=== PATIENT | female | born 1950 | race Caucasian/White ===

== ENCOUNTER 2020-01-21 12:59 | Observation (INO) | payer MEDICARE ==
[~2020-01-21] VITALS: Ht 152.4 cm; Wt 55.3 kg
--- NOTE | 2020-01-21 13:02 | NUR ---
PT REFUSED WHEELCHAIR AND AMBUALTED TO ROOM WITH A STEADY GAIT.
--- NOTE | 2020-01-21 13:30 | NUR ---
PT APPEARS VERY ANXIOUS ABOUT SOB, BUT TALKING WITHOUT ANY PROBLEMS, NO DISTRESS NOTED. HASNT BEEN IN A HOSPITAL FOR ABOUT 11 YEARS . WAS SEEN [facility] BUT HAS NOT GOTTEN ANY RESULTS BACK FAR TEST RESULTS.
[2020-01-21 13:36] LABS: HEMATOCRIT 38.7 % (37.0-47.0); HEMOGLOBIN 12.9 g/dl (12.0-16.0); IMMATURE GRANULOCYTES 1.1 % (0.0-5.0); MEAN CELL VOLUME 89.4 fL CALC (80.0-100.0); MEAN CORPUSCULAR HGB 29.8 pG CALC (26.0-32.0); MEAN CORPUSCULAR HGB CONC 33.3 g/dL CAL (32.0-36.0); NEUT# 7.06 thou/uL (2.00-7.15); RED BLOOD COUNT 4.33 mill/uL (4.20-5.60); RED CELL DISTRI WIDTH 12.8 % (11.5-15.5)
--- NOTE | 2020-01-21 13:40 | NUR ---
DENIES ANY CHEST PAIN , DENIES SOB, RESTING QUIETLY ON STRETCHER
[2020-01-21 13:52] LABS: ALBUMIN 4.2 g/dL (3.2-5.0); ALKALINE PHOSPHATASE 106 u/l (38-126); ANION GAP 13 (6-22 (CALC)); BILIRUBIN, TOTAL 0.5 mg/dL (0.0-1.4); BUN 21 mg/dL (8-23); BUN/CREATININE RATIO 25 (12-20 (CALC)); CARBON DIOXIDE 28 mmol/l (22-30); CHLORIDE 101 mmol/l (95-108); CREATININE 0.8 mg/dL (0.5-1.0); GFR > 60 ML/MIN (>=60 (CALC)); GFR FOR AFR.AMER. > 60 ML/MIN (>=60 (CALC)); POTASSIUM 3.1 mmol/l (3.5-5.1); SGOT/AST 28 u/l (9-36); SODIUM 138 mmol/l (137-146); TOTAL PROTEIN 7.3 g/dL (6.3-8.2)
[2020-01-21] MEDS ORDERED: PRAVASTATIN SOD20 MG PO (14:03)
[2020-01-21] MEDS ORDERED: AMOXICILLIN500 MG PO (14:03)
[2020-01-21] MEDS ORDERED: OMEPRAZOLE20 MG PO (14:04)
[2020-01-21] MEDS ORDERED: LEVOTHYROXIN50 MCG PO (14:04)
[2020-01-21 14:05] LABS: MYOGLOBIN 29 ng/mL (0 - 62)
--- NOTE | 2020-01-21 14:06 | NUR ---
PT RESTING QUIETLY ON STRETCHER, WATCHING TV
[2020-01-21 14:28] LABS: URINE BILIRUBIN - DIPSTICK NEGATIVE (NEGATIVE); URINE BLOOD DIPSTICK NEGATIVE (NEGATIVE); URINE COLOR YELLOW; URINE GLUCOSE - DIPSTICK NEGATIVE (NEGATIVE); URINE KETONE NEGATIVE (NEGATIVE); URINE LEUK ESTERASE NEGATIVE (NEGATIVE); URINE NITRITE - DIPSTICK NEGATIVE (Negative); URINE PROTEIN - DIPSTICK NEGATIVE (NEG-TRACE); URINE SPECIFIC GRAVITY <=1.005; URINE UROBILINOGEN - DIPSTICK 0.2 E.U./dL (0.2)
--- NOTE | 2020-01-21 14:39 | NUR ---
COVID 19 TEST FOR INPT. PER DOCTOR ORDER.
--- NOTE | 2020-01-21 15:19 | NUR ---
TRIED CALLING REPORT TO MED SURG , NURSE NOT AVAILABLE AT THIS TIME.
[2020-01-21 15:20] LABS: TSH, 3RD GENERATION 2.77 uIU/mL (0.47 - 4.68)
--- NOTE | 2020-01-21 15:50 | NUR ---
REPORT GIVEN TO FLOOR WILL PACKAGE PT UP AND TRANSFER TO MED SURG PER W/C
[2020-01-21 16:00] VITALS: BP 156/67
--- NOTE | 2020-01-21 16:00 | NUR ---
PT ARRIVED TO MED/SURG ROOM 289 IN STABLE CONDITION VIA STRETCHER ACCOMPANIED BY CAROLYN BARRAZA;PT AMBULATED TO BEDSIDE WITH A STEADY GAIT;PT A&O X3,ORIENTED TO ROOM AND CALL LIGHT SYSTEM;PT REPORTS INCREASED SOB AND CHEST PRESSURE X1 MTH WHICH HAS WORSENED SINCE OUTPT THERPAY;PT DENIES ANY CURRENT PAIN OR DISCOMFORTS,PAIN SCALE AND REPORTING EDUCATED;RESPIRATIONS EVEN AND UNLABORED ON RA,CLEAR LUNG SOUNDS;ABDOMEN SOFT ON PALPATION AND ACTIVE IN ALL 4 QUADRANTS,LAST BM 01/21/20;STRONG PEDAL PULSES;SKIN INTACT;TELE MONITORING IN PLACE;#20G TO LEFT WRIST FLUSHED AND PATENT,SITE APPEARS HEALTHY;LIMB ALERT BAND APPLIED TO RIGHT ARM FOR HX OF LUMPECTOMY,ALLERGY AND FALL BAND APPLIED;PT DENIES ANY ADDITIONAL NEEDS AND IS ENCOURAGED TO CALL FOR ASSISTANCE IF NEEDED;FALL PRECAUTIONS IN PLACE WITH BED IN THE LOWEST POSITION AND CALL LIGHT IN REACH;WILL CONTINUE TO MONITOR
--- NOTE | 2020-01-21 17:50 | NUR ---
PT RESTING IN SEMI FOWLERS POSITION EATING DINNER;RESPIRATIONS EVEN AND UNLABORED ON RA;PT DENIES ANY CURRENT PAIN OR NEEDS;TELE MONITORING IN PLACE;PT ENCOURAGED TO CALL FOR ASSISTANCE IF NEEDED;CALL LIGHT IN REACH;WILL CONTINUE TO MONITOR
--- NOTE | 2020-01-21 19:03 | NUR ---
REPORT RECEIVED FROM ARTIS LARSEN. PT RESTING IN BED. NO S/S OF DISTRESS AT THIS TIME. SAFETY PRECAUTIONS IN PLACE. WILL CONTINUE TO MONITOR.
[2020-01-21 19:06] VITALS: BP 137/49
--- NOTE | 2020-01-21 20:14 | NUR ---
PT RESTING IN BED, ALERT AND ORIENTED. RESPIRATIONS EVEN AND UNLABORED ON RA. LUNGS SOUND CLEAR. PEDAL PULSES ARE STRONG. PT DENIES ANY PAIN HOWEVER REPORTS FEELING PRESSURE IN HER CHEST. TELE IN PLACE. WILL CONTINUE TO MONITOR.
--- NOTE | 2020-01-22 00:10 | NUR ---
PT RESTING IN BED. NO S/S OF DISTRESS AT THIS TIME. BLOOD DRAWN FOR LABS, PT TOLERATED WELL. SAFETY PRECAUTIONS IN PLACE. WILL CONTINUE TO MONITOR.
[2020-01-22 00:13] VITALS: BP 122/50
--- NOTE | 2020-01-22 04:16 | NUR ---
PT RESTING IN BED NO S/S OF DISTRESS AT THIS TIME. SAFETY PRECAUTIONS IN PLACE. WILL CONTINUE TO MONITOR.
[2020-01-22 04:30] VITALS: BP 125/55
[2020-01-22 06:24] LABS: CHOLESTEROL HDL RATIO 3.6 (<4.4 (CALC)); MAGNESIUM 1.2 mg/dL (1.6-2.3)
--- NOTE | 2020-01-22 07:10 | NUR ---
REPORT RECIEVED FROM CAROLYN TRINH.
[2020-01-22 08:17] VITALS: BP 137/61
--- NOTE | 2020-01-22 08:20 | NUR ---
PT RESTING IN SEMI FOWLERS POSITION,A&O X3;VS OBTAINED AND ASSESSMENT COMPLETED;PT DENIES ANY CURRENT PAIN OR DISCOMFORTS,PAIN SCALE AND REPORTING EDUCATED;RESPIRATIONS EVEN AND UNLABORED ON RA,CLEAR LUNG SOUNDS;ABDOMEN DISTENDED/SOFT ON PALPATION AND ACTIVE IN ALL 4 QUADRANTS;STRONG PEDAL PULSES;SKIN INTACT;TELE MONITORING IN PLACE;#20G TO LFA FLUSHED AND PATENT,MAG STARTED AT THIS TIME PER ORDER;PT DENIES ANY ADDITIONAL NEEDS AT THIS TIME AND IS ENCOURAGED TO CALL FOR ASSISTANCE IF NEEDED;CALL LIGHT IN REACH;WILL CONTINUE TO MONITOR
[2020-01-22 10:57] VITALS: BP 146/63
--- NOTE | 2020-01-22 11:15 | NUR ---
PT RESTING IN SEMI FOWLERS POSITION;RESPIRATIONS EVEN AND UNLABORED ON RA;PT DENIES ANY CURRENT PAIN OR NEEDS;TELE MONITORING IN PLACE;IV SITE PATENT;PT ENCOURAGED TO CALL FOR ASSISTANCE IF NEEDED;CALL LIGHT IN REACH;WILL CONTINUE TO MONITOR
--- NOTE | 2020-01-22 11:36 | NUR ---
AT BEDSIDE DISCUSSING POC WITH PT.
--- NOTE | 2020-01-22 12:40 | NUR ---
PT REQUEST IV SITE TO BE CHANGED AT THIS TIME,IV SITE REMOVED WITH CATHETER INTACT.NEW #22G TO LFA STARTED ON 2ND ATTEMPT BY THIS WRITTER,PT TOLERATED WELL;WILL CONTINUE TO MONITOR
[2020-01-22] MEDS ORDERED: ZITHROMAX250 MG PO (13:59)
[2020-01-22] MEDS ORDERED: TESSALON PERLE100 MG PO (15:11)
--- NOTE | 2020-01-22 15:40 | NUR ---
PT RESTING IN SEMI FOWLERS POSITION;RESPIRATIONS EVEN AND UNLABORED ON RA;PT DENIES ANY CURRENT PAIN OR DISCOMFORTS;TELE MONITORING IN PLACE;IV SITE PATENT;PT VERBALIZES UNDERSTANDING ON PLANS FOR D/C HOME,PT TO TRANSPORT SELF HOME;PT DENIES ANY ADDITIONAL NEEDS AT THIS TIME;CALL LIGHT IN REACH;WILL CONTINUE TO MONITOR
--- NOTE | 2020-01-22 15:56 | NUR ---
ALL DISCHARGE INSTRUCTIONS PROVIDED AT THIS TIME;RX FOR TESSLON PEARLS PROVIDED AND PT INSTRUCTED TO TAKE DIRECTED;RX FOR ZITHRO SENT TO PHARMACY,PT ENCOURAGED TO HYDRATE WELL AND INCREASE MAG ORAL INTAKE;IV SITE REMOVED WITH CATHETER INTACT AND TELE MONITORING IN D/C;WHEELCHAIR TO BE PROVIDED FOR D/C HOME;PT TO TRANSPORT SELF HOME.
--- NOTE | 2020-01-22 16:00 | NUR ---
Discharge instructions given. Patient verbalizes understanding of same. Discharged in stable condition via Wheelchair to Home with . All belongings sent with pt. PT TRANSPORTED TO [facility] IN STABLE CONDITION FOR D/C HOME,PT TO TRANSPORT SELF HOME.
--- NOTE | 2020-01-23 14:05 | NUR ---
Notified patient of Negative Covid results. Advised patient to follow up with PCP or return to [facility] with any urgent issues. Advised patient to continue to use Covid prevention practices such as hand washing and limiting contact with others. Patient verbalized understanding.
== END 2020-01-22 16:00 | disposition home or self-care (01) ==
LOC: ED 12:59 → ED-I 14:30 → ED 14:46 → MS2 14:47 → ED-I 14:47 → MS2 15:10
PROVIDERS: Emergency Medicine; ADMIT Internal Medicine; ATTEND Internal Medicine
DX: R07.9 Chest pain, unspecified (principal); R05 Cough; R06.02 Shortness of breath; E87.6 Hypokalemia; E03.9 Hypothyroidism, unspecified; E83.42 Hypomagnesemia; E78.5 Hyperlipidemia, unspecified; Z85.3 Personal history of malignant neoplasm of breast; Z92.21 Personal history of antineoplastic chemotherapy; Z92.3 Personal history of irradiation; Z87.891 Personal history of nicotine dependence; Z20.828 Contact with and (suspected) exposure to other viral communicable diseases
CPT/HCPCS: G0378; J3475